=== PATIENT | male | born 1980 | race Caucasian/White ===

== ENCOUNTER 2017-02-24 07:28 | Day surgery (SDC) | payer MEDICAID ==
[2017-02-24] MEDS ORDERED: Lactated Ringers 1,000 ML IV SCH (07:45)
[2017-02-24] MEDS ORDERED: Lidocaine 2% 100 MG/5 ML Syringe IVPUSH ONE (10:00)
[2017-02-24] MEDS ORDERED: Propofol 200 MG/20 ML SDV IV ONE (10:00)
[2017-02-24] MEDS ORDERED: Midazolam 1 MG/ML 2 ML SDV IV ONE (10:00)
--- NOTE | 2017-02-24 10:06 | PCM.OPNOTE ---
- General Post-Op/Procedure Note Date of Surgery/Procedure: 02/24/17 Operative Procedure(s): egd with bx Findings: gatritis Connelly's esophagus Pre Op Diagnosis: Connelly's esophagus Post-Op Diagnosis: gatritis. Connelly's esophagus Anesthesia Technique: DOMINGO Primary Surgeon: Jason Caldwell Anesthesia Provider: Manjinder Smith Pathology: stomach and esophagus Complications: None Condition: Good Free Text/Narrative:: see dictation
[2017-02-24 10:51] VITALS: BP 140/89
--- NOTE | 2017-02-24 17:59 | OR ---
DATE OF OPERATION: 02/24/2017 SURGEON: Jason Caldwell MD PROCEDURE PERFORMED: Esophagogastroduodenoscopy with cold forceps biopsy. PREOPERATIVE DIAGNOSIS: Personal history of Connelly's esophagus. POSTOPERATIVE DIAGNOSIS: Gastritis as well as Connelly's esophagus. INDICATIONS FOR PROCEDURE: Ronal is a 36-year-old white male, who on the upper endoscopy 5 years ago was noted to have a Connelly's esophagus and was recommended to have a followup endoscopy in 5 years. They were offered and accepted the same, and permission was obtained by the patient's power-of- ip attorney who is his mother. DESCRIPTION OF OPERATION: After an excellent IV sedation was administered, the bite block was inserted, and the patient was kept on his back due to his hips. The flexible endoscope was passed without difficulty down the patient's esophagus into the stomach. The stomach was insufflated, scope was passed through the pylorus to the second portion of the duodenum, and slowly withdrawn. The following findings were noted. The duodenum was essentially unremarkable. Stomach demonstrated some diffuse gastritis. Multiple biopsies were taken. The esophagus, irregular Z-line consistent with Connelly's, and biopsies were taken circumferentially around the esophagus. The remainder of the esophageal exam was unremarkable. The stomach was deflated, scope was removed, the patient tolerated the procedure well, and was taken to recovery room in good condition. /[id number] /SABIL
== END 2017-02-24 11:15 | disposition home or self-care (01) ==
LOC: FB.SDS 07:28
PROVIDERS: ATTEND Surgery
DX: K22.70 Barrett's esophagus without dysplasia (principal); K29.50 Unspecified chronic gastritis without bleeding; K21.0 Gastro-esophageal reflux disease with esophagitis; I10 Essential (primary) hypertension; Z98.890 Other specified postprocedural states; Z79.899 Other long term (current) drug therapy; Z88.0 Allergy status to penicillin
CPT/HCPCS: 43239; 88305; 88313; 88342; J2250; J2704; J7120

== ENCOUNTER 2022-11-15 07:57 | Emergency (ER) | payer MEDICARE, MEDICAID ==
[2022-11-15] MEDS ORDERED: LORazepam 2 MG/ML SDV IVPUSH ONE (09:20)
[2022-11-15] MEDS ORDERED: Ondansetron 4 MG/2 ML SDV IVPUSH ONE (09:23)
[2022-11-15 09:29] LABS: HEMOGLOBIN 17.2 g/dL (12.9-17.7); RED CELL DISTRIBUTION WIDTH 13.9 % (12.4-15.0)
[2022-11-15 09:31] LABS: HEMATOCRIT 50.3 % (38.3-50.1); MEAN CORPUSCULAR HEMOGLOBIN 28.7 pg (27.0-33.3); MEAN CORPUSCULAR HGB CONC 34.2 g/dL (28.7-35.3); MEAN PLATELET VOLUME 8.4 fL (6.7-11.0); PLATELET COUNT,PLT 373 x10(3)uL (117-477); RED BLOOD CELL COUNT 5.99 x10(6)uL (3.90-5.90); WHITE BLOOD CELL COUNT,WBC 26.7 x10-3/uL (3.2-10.1)
[2022-11-15 09:33] LABS: BLOOD UREA NITROGEN,BUN 43 mg/dL (7-18); CALCIUM 10.4 mg/dL (8.6-10.2); CARBON DIOXIDE,CO2 29 mmol/L (21-32); CHLORIDE,CL 98 mmol/L (100-110); ESTIMATED GFR 96 mL/min (>60); GLUCOSE RANDOM 159 mg/dL (80-116); POTASSIUM,K 4.4 mmol/L (3.5-5.3); SODIUM,NA 140 mmol/L (135-145)
[2022-11-15 09:39] LABS: A/G RATIO 0.8; ALANINE AMINOTRANSFERASE,ALT 26 U/L (12-36); ALBUMIN 4.1 g/dL (3.5-5.2); ALKALINE PHOSPHATASE 106 IU/L (56-112); ASPARTATE AMNIOTRANSFERASE,AST 16 IU/L (5-25)
[2022-11-15 09:43] LABS: LYMPHOCYTES PERCENT MAN 8 % (13-37); MONOCYTES PERCENT MAN 7 % (4-12); SEG NEUTROPHILS PERCENT MAN 85 % (46-82)
[2022-11-15] MEDS ORDERED: Sodium Chloride 0.9% 1,000 ML IV ONE ×2 (09:50→11:10)
[2022-11-15 10:02] LABS: INFLUENZA A NAA NEGATIVE (NEGATIVE); INFLUENZA B NAA NEGATIVE (NEGATIVE); RESPIRATORY SYNCYTIAL VIR NAA NEGATIVE (NEGATIVE)
[2022-11-15 10:11] LABS: LACTIC ACID 2.4 mmol/L (0.4-2.0)
[2022-11-15] MEDS ORDERED: cefTRIAXone 2 GM Vial IVPUSH ONE (10:13)
[2022-11-15 10:16] LABS: APPEARANCE,URINE SLIGHTLY CLOUDY (CLEAR); COLOR,URINE ORANGE (YELLOW)
[2022-11-15 10:16] LABS: CORONAVIRUS COVID-19 NAA NEGATIVE (NEGATIVE)
[2022-11-15 10:17] LABS: BACTERIA,URINE MODERATE (NS); BILIRUBIN,URINE NEGATIVE (NEGATIVE); GLUCOSE,URINE NORMAL (NORMAL); HYALINE CASTS,URINE RARE (NS); KETONES,URINE 15 mg/dL (NEGATIVE); LEUKOCYTE ESTERASE,URINE MODERATE (NEGATIVE); MUCUS,URINE RARE (NS); NITRITE,URINE NEGATIVE (NEGATIVE); OCCULT BLOOD,URINE NEGATIVE (NEGATIVE); PROTEIN,URINE 30 mg/dL (NEGATIVE); RBC,URINE 0-5 (0-5); SQUAMOUS EPITHELIAL CELLS,UR RARE (NS,R,O); UROBILINOGEN,URINE NORMAL (NEGATIVE)
[2022-11-15] MEDS ORDERED: VANCOmycin 1 GM/200 ML 1 GM in Premix Bag 1 BAG IV ONE (10:30)
[2022-11-15 11:25] VITALS: BP 127/77; PULSE 99
== END 2022-11-15 11:15 ==
LOC: FB.ED 07:57
DX: A41.9 Sepsis, unspecified organism (principal); N39.0 Urinary tract infection, site not specified; K22.2 Esophageal obstruction; K22.70 Barrett's esophagus without dysplasia; K29.60 Other gastritis without bleeding; E86.0 Dehydration; R11.2 Nausea with vomiting, unspecified; K21.9 Gastro-esophageal reflux disease without esophagitis; I10 Essential (primary) hypertension; Z88.0 Allergy status to penicillin; Z79.899 Other long term (current) drug therapy; Z20.822 Contact with and (suspected) exposure to COVID-19
CPT/HCPCS: 0241U; 36415; 71045; 80053; 81001; 83605; 83735; 84484; 85025; 86140; 87040; 87086; 96365; 96375; 99285; C1758; J0696; J2060; J2405; J3370; J7030